=== PATIENT | female | born 1945 | race Caucasian/White ===

== ENCOUNTER 2025-04-27 13:21 | Emergency (ER) | payer MEDICARE, MEDICAID ==
[~2025-04-27] VITALS: Ht 160 cm; Wt 65.0 kg
[2025-04-27] MEDS ORDERED: CLOP75TA2 PO (13:34)
[2025-04-27] MEDS ORDERED: TAMO20TA8 PO (13:34)
[2025-04-27] MEDS ORDERED: CILO50TA2 PO (13:34)
[2025-04-27] MEDS: ACETAMINOPHEN 325 MG TAB PO ONE (15:13)
[2025-04-27] MEDS: traMADol 50 MG TAB PO ONE (15:13)
[2025-04-27] MEDS ORDERED: ASPE4PAD TOP (16:05)
[2025-04-27] MEDS ORDERED: TRAM50TA2 PO (16:05)
[2025-04-27 16:32] VITALS: BP 129/74; TEMP 97; O2SAT 95
== END 2025-04-27 16:36 | disposition home or self-care (01) ==
LOC: M ED 13:21
DX: S32.010A Wedge compression fracture of first lumbar vertebra, initial encounter for closed fracture (principal); M80.08XA Age-related osteoporosis with current pathological fracture, vertebra(e), initial encounter for fracture; X58.XXXA Exposure to other specified factors, initial encounter; Y92.9 Unspecified place or not applicable; Y93.9 Activity, unspecified; Y99.9 Unspecified external cause status; Z85.3 Personal history of malignant neoplasm of breast; Z88.5 Allergy status to narcotic agent